=== PATIENT | male | born 1970 | race Caucasian/White ===

== ENCOUNTER → 2018-08-05 | Outpatient (REF) | payer OTHER, MEDICAID ==
[2018-08-05 17:43] LABS: BASO # 0.1 10^3/uL (0.0-0.2); BASO % 1.3 % (0.0-1.0); EOS # 0.2 10^3/uL (0.0-0.50); EOS % 3.2 % (0.0-3.0); HEMATOCRIT 49.9 % (42.0-52.0); HEMOGLOBIN 16.3 g/dl (13.5-17.5); LYMPH # 2.2 10^3/uL (1.5-4.5); LYMPH % 29.2 % (24.0-44.0); MEAN CORPUSCULAR HEMOGLOBIN 27.6 pg (27.0-33.0); MEAN CORPUSCULAR HGB CONC 32.7 g/dl (32.0-36.5); MEAN CORPUSCULAR VOLUME 84.6 fl (80.0-96.0); MONO # 0.5 10^3/uL (0.0-0.8); MONO % 6.8 % (0.0-5.0); NEUTROPHILS # 4.5 10^3/uL (1.8-7.7); NEUTROPHILS % 59.1 % (36.0-66.0); PLATELET COUNT, AUTOMATED 293 10^3/uL (150-450); WHITE BLOOD COUNT 7.6 10^3/uL (4.0-10.0)
[2018-08-05 17:51] LABS: AMORPHOUS SEDIMENT LARGE (NEGATIVE); APPEARANCE, URINE TURBID (CLEAR); BACTERIA, URINE AUTO NEGATIVE (NEGATIVE); BILIRUBIN, URINE AUTO NEGATIVE (NEGATIVE); BLOOD, URINE BLOOD NEGATIVE (NEGATIVE); COLOR, URINE AMBER (YELLOW); GLUCOSE, URINE (UA) AUTO NEGATIVE (NEGATIVE); KETONE, URINE AUTO NEGATIVE (NEGATIVE); LEUKOCYTE ESTERASE, URINE AUTO NEGATIVE (NEGATIVE); MUCUS, URINE SMALL (NEGATIVE); NITRITE, URINE AUTO NEGATIVE (NEGATIVE); PROTEIN, URINE AUTO NEGATIVE (NEGATIVE); RBC, URINE AUTO 0 /HPF (0-3); SPECIFIC GRAVITY URINE AUTO 1.025 (1.002-1.035); SQUAMOUS EPITHELIAL CELL UR AU 0 /HPF (0-6); UROBILINOGEN, URINE AUTO 0.2 mg/dL (0.0-2.0); WBC, URINE AUTO 0 /HPF (0-3)
[2018-08-05 18:04] LABS: ALBUMIN 3.8 GM/DL (3.2-5.2); ALT/SGPT 76 U/L (12-78); BILIRUBIN,TOTAL 0.2 MG/DL (0.2-1.0); BLOOD UREA NITROGEN 16 MG/DL (7-18); CALCIUM LEVEL 8.9 MG/DL (8.5-10.1); CARBON DIOXIDE LEVEL 25 MEQ/L (21-32); CHLORIDE LEVEL 106 MEQ/L (98-107); CHOLESTEROL LEVEL 295 MG/DL (<200); CHOLESTEROL RISK RATIO 8.194 (<5); CREATININE FOR GFR 1.03 MG/DL (0.70-1.30); GLOMERULAR FILTRATION RATE > 60.0 (>60); GLUCOSE, FASTING 89 MG/DL (70-100); HDL CHOLESTEROL 36 MG/DL (>40); LDL CHOLESTEROL 221 MG/DL (<100); NON-HDL-C 259 MG/DL; POTASSIUM SERUM 4.5 MEQ/L (3.5-5.1); SODIUM LEVEL 140 MEQ/L (136-145); TOTAL PROTEIN 7.3 GM/DL (6.4-8.2); TRIGLYCERIDES LEVEL 190 MG/DL (<150)
[2018-08-05 18:06] LABS: TOTAL 25(OH) VITAMIN D 26.7 NG/ML (30.0-100.0)
[2018-08-05 18:26] LABS: HEMOGLOBIN A1c 6.4 %
[2018-08-10 00:06] LABS: Lyme Disease IgG Ab 18 kDa Ban Absent (.); Lyme Disease IgG Ab 23 kDa Ban Absent (.); Lyme Disease IgG Ab 28 kDa Ban Absent (.); Lyme Disease IgG Ab 30 kDa Ban Absent (.); Lyme Disease IgG Ab 39 kDa Ban Absent (.); Lyme Disease IgG Ab 41 kDa Ban Absent (.); Lyme Disease IgG Ab 45 kDa Ban Absent (.); Lyme Disease IgG Ab 58 kDa Ban Absent (.); Lyme Disease IgG Ab 66 kDa Ban Absent (.); Lyme Disease IgG Ab 93 kDa Ban Absent (.); Lyme Disease IgG West Blot Int Negative (.); Lyme Disease IgG/IgM Antibodie <0.91 ISR (0.00-0.90); Lyme Disease IgM Ab 23 kDa Ban Absent (.); Lyme Disease IgM Ab 39 kDa Ban Present (.); Lyme Disease IgM Ab 41 kDa Ban Absent (.); Lyme Disease IgM Ab Quantitati 1.23 index (0.00-0.79); Lyme Disease IgM West Blot Int Negative (.)
== END ==
LOC: M LAB REF 16:47
PROVIDERS: ATTEND Family Medicine
DX: Z00.01 Encounter for general adult medical examination with abnormal findings (principal); M25.50 Pain in unspecified joint

== ENCOUNTER 2018-10-21 06:48 | Day surgery (SDC) | payer OTHER ==
[~2018-10-21] VITALS: Ht 170.2 cm; Wt 87.5 kg
[~2018-10-21 06:48] MED LIST: WELLTAB38 PO
[2018-10-21] MEDS ORDERED: NS 1,000 ML IV SCH (07:00)
[2018-10-21] MEDS ORDERED: PROPOFOL 200 MG/20 ML VIAL As Ordered ONE ×2 (07:21→07:46)
[2018-10-21] MEDS ORDERED: LIDOCAINE 2% INJ 100 MG/5 ML SDV (FOR ANES.) As Ordered ONE (07:21)
--- NOTE | 2018-10-21 07:59 | ROOR ---
Patient Name: Blaine Meadows Procedure Date: 10/21/2018 7:34 AM Date of : 1970 Age: 48 Room: [facility] Gender: Male Note Status: Finalized Procedure: Colonoscopy Indications: Screening in patient at increased risk: Family history of 1st-degree relative with colorectal cancer Providers: Alec HURST MD Referring MD: Alec DEL REAL MD Requesting Provider: Medicines: Monitored Anesthesia Care Complications: No immediate complications. Procedure: Pre-Anesthesia Assessment: - The heart rate, respiratory rate, oxygen saturations, blood pressure, adequacy of pulmonary ventilation, and response to care were monitored throughout the procedure. The Colonoscope was introduced through the anus and advanced to the cecum, identified by appendiceal orifice and ileocecal valve. The colonoscopy was performed without difficulty. The patient tolerated the procedure well. The quality of the bowel preparation was good. Findings: The perianal and digital rectal examinations were normal. Five sessile polyps were found in the sigmoid colon. The polyps were diminutive in size. These polyps were removed with a jumbo cold forceps. Resection and retrieval were complete. The exam was otherwise without abnormality on direct and retroflexion views. (Exam: Complete, Prep: Good or Excellent.) Impression: - (Exam: Complete, Prep: Good or Excellent.) - Five diminutive polyps in the sigmoid colon, removed with a jumbo cold forceps. Resected and retrieved. - Small internal hemorrhoids - The examination was otherwise normal on direct and retroflexion views. Recommendation: - Telephone endoscopist for pathology results in 2 weeks. - If the pathology report reveals adenomatous tissue, then repeat the colonoscopy for surveillance in 3 years. - If the pathology report reveals no adenomatous tissue, then repeat the colonoscopy for screening purposes in 5 years. Alec Hurst MD Alec HURST MD 10/21/2018 7:59:12 AM Electronically signed by Alec HURST MD Number of Addenda: 0 Note Initiated On: 10/21/2018 7:34 AM Estimated Blood Loss: Estimated blood loss: none.
[2018-10-21 08:29] VITALS: BP 130/62
== END 2018-10-21 08:29 | disposition home or self-care (01) ==
LOC: M OPP 06:48
PROVIDERS: ATTEND Internal Medicine Gastroenterology
DX: K63.5 Polyp of colon (principal); Z12.11 Encounter for screening for malignant neoplasm of colon; Z80.0 Family history of malignant neoplasm of digestive organs

== ENCOUNTER 2020-04-10 08:20 | Emergency (ER) | payer BC, OTHER, SELFPAY ==
[~2020-04-10] VITALS: Ht 170.2 cm; Wt 91.9 kg
[2020-04-10] MEDS: NITROGLYCERIN 0.4 MG SUBL TABLET SL PRN ×2 (09:03→09:12)
[2020-04-10 09:12] VITALS: BP 151/79
[2020-04-10 09:19] LABS: BASO # 0.1 10^3/uL (0.0-0.2); EOS # 0.2 10^3/uL (0.0-0.5); EOS % 2.8 % (0.0-3.0); HEMATOCRIT 47.5 % (42.0-52.0); HEMOGLOBIN 15.2 g/dl (13.5-17.5); LYMPH # 1.6 10^3/uL (1.5-5.0); LYMPH % 25.8 % (24.0-44.0); MEAN CORPUSCULAR HEMOGLOBIN 26.9 pg (27.0-33.0); MEAN CORPUSCULAR VOLUME 83.9 fl (80.0-96.0); MONO # 0.4 10^3/uL (0.0-0.8); MONO % 6.6 % (0.0-5.0); NEUTROPHILS # 3.9 10^3/uL (1.5-8.5); NEUTROPHILS % 62.8 % (36.0-66.0); PLATELET COUNT, AUTOMATED 317 10^3/uL (150-450); RED BLOOD COUNT 5.66 10^6/uL (4.30-6.10); WHITE BLOOD COUNT 6.2 10^3/uL (4.0-10.0)
[2020-04-10 09:20] LABS: INR 0.94; PROTHROMBIN TIME 12.8 SECONDS (12.5-14.3)
[2020-04-10 09:21] LABS: PARTIAL THROMBOPLASTIN TIME 31.2 SECONDS (24.2-38.5)
[2020-04-10 09:29] LABS: ALBUMIN 3.7 GM/DL (3.2-5.2); ALT/SGPT 52 U/L (12-78); BILIRUBIN,DIRECT 0.1 MG/DL (0.0-0.2); BILIRUBIN,TOTAL 0.5 MG/DL (0.2-1.0); BLOOD UREA NITROGEN 18 MG/DL (7-18); CALCIUM LEVEL 9.3 MG/DL (8.5-10.1); CARBON DIOXIDE LEVEL 27 MEQ/L (21-32); CHLORIDE LEVEL 108 MEQ/L (98-107); CREATININE FOR GFR 1.05 MG/DL (0.70-1.30); GLOMERULAR FILTRATION RATE > 60.0 (>56); GLUCOSE, FASTING 97 MG/DL (70-100); LIPASE 110 U/L (73-393); POTASSIUM SERUM 3.9 MEQ/L (3.5-5.1); SODIUM LEVEL 140 MEQ/L (136-145); TOTAL PROTEIN 7.1 GM/DL (6.4-8.2)
--- NOTE | 2020-04-10 09:37 | REP ---
INDICATION: CHEST PAIN. COMPARISON: None. TECHNIQUE: SINGLE PORTABLE AP VIEW OF THE CHEST WAS PERFORMED. FINDINGS: THERE IS NO ACUTE INFILTRATE OR PULMONARY EDEMA. LUNGS ARE CLEAR. HEART IS NOT SIGNIFICANTLY ENLARGED. MEDIASTINAL SILHOUETTE IS UNREMARKABLE. THE VISUALIZED OSSEOUS STRUCTURES ARE INTACT. IMPRESSION: NO ACUTE PULMONARY DISEASE. <Electronically signed by Edgard Shaw > 04/10/20 0929
[2020-04-10] MEDS ORDERED: ISOVUE-370 76% 100ML VIAL As Ordered ONE (10:10)
[2020-04-10] MEDS ORDERED: GI COCKTAIL 50ML BTL(HYOSCYAMINE/MAALOX/LIDOCAINE VISCOUS)(1:3:1) PO ONE (10:30)
--- NOTE | 2020-04-10 11:11 | REP ---
INDICATION: r/o PE. COMPARISON: None. TECHNIQUE: CT angiogram chest performed following the intravenous administration of 100 cc of Isovue 370. Sagittal and coronal reconstruction images are performed. FINDINGS: Lungs: The calcified granuloma seen in the right upper lobe posteriorly. There is a 4 mm nodule in the left lower lobe on image number 46 this is of doubtful significance. No infiltrate is seen in either lung. Mediastinum: No adenopathy. Pulmonary arteries: No evidence of pulmonary embolism. Miranda: No adenopathy. Axilla: No adenopathy. Pleura: No effusion. Heart: Not enlarged. Thoracic aorta: No aneurysm or dissection. Upper abdominal structures: There is a small hiatal hernia. Visualized osseous structures: Unremarkable. IMPRESSION: No CT evidence of pulmonary embolism.No infiltrate seen. 4 mm nodule left lower lobe of doubtful significance. Recommend follow-up CT in 1 year only if the patient is at high risk for cancer. <Electronically signed by Edgard Shaw > 04/10/20 1109
[2020-04-10] MEDS ORDERED: PANTOPRAZOLE 40MG VIAL (C9113 PER 1) IV ONE (13:45)
[2020-04-10 14:45] VITALS: BP 127/74
--- NOTE | 2020-04-11 07:57 | ECGEPIP ---
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
--- NOTE | 2020-04-11 07:59 | ECGEPIP ---
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
--- NOTE | 2020-04-11 08:03 | ECGEPIP ---
[facility] - ED Test Date: 2020-04-10 Pat Name: GE DAVIDSON Department: Room: - Gender: Male Clinical Account Liaison: damari : 1970 Requested By: Parmjit Ventura Order Number: [id number] Reading MD: Jeanine Cali Measurements Intervals [place] Rate: 50 P: 22 WV: 153 QRS: -5 QRSD: 96 T: 3 QT: 392 QTc: 359 Interpretive Statements SINUS BRADYCARDIA NONSPECIFIC T-WAVE ABNORMALITY PROLONGED QTC SHORTER 04/10/20 Electronically Signed on 04-11-2020 8:03:04 EDT by Jeanine Cali
--- NOTE | 2020-04-12 16:12 | ED PDOC ---
Post-Departure Follow-Up dr gannon faxed formal report of cta chest for fu Singh Keane MD Apr 12, 2020 16:12
== END 2020-04-10 15:00 | disposition home or self-care (01) ==
LOC: M ED 08:20 → EDBD 08:20 → M ED 15:00
DX: R07.89 Other chest pain (principal); R06.02 Shortness of breath; E78.5 Hyperlipidemia, unspecified; Z87.891 Personal history of nicotine dependence
CPT/HCPCS: 71045; 71275; 80048; 80076; 83690; 84484; 85025; 85610; 85730; 93005; 93041; 94760; 96374; 99285; C9113; Q9967

== ENCOUNTER → 2020-07-03 | Outpatient (CLI) | payer OTHER ==
--- NOTE | 2020-07-08 14:25 | SLEEPHOME ---
DATE: 07/03/2020 ORDERED BY: Alec Domingo MD Diagnostic home sleep testing was performed due to concern for the obstructive sleep apnea syndrome. For testing, a nocturnal T3 respiratory monitoring device was used. Continuous record was made of pulse, oxygen saturation, air flow, chest and abdominal strain, and body position. Nine hours and 59 minutes of data were reviewed. There were 6 hours and 8 minutes marked as time in bed. During the interval marked time in bed, there were 92 respiratory events identified of 10 seconds in duration or greater for a respiratory event index of 15. The events were primarily obstructive and 18 mixed and central apneas were noted. Baseline pulse rate was 53 beats per minute. Pulse rate ranged 37 to 117. Baseline saturation was 91%. Saturations were seen to 82%. Further desaturation was noted to be likely artifactual. Testing was performed in both the supine and nonsupine positions. IMPRESSION: Abnormal home sleep testing with repetitive respiratory events and oxygen desaturations to 82% with a respiratory event index of 15 is consistent with the obstructive sleep apnea syndrome. RECOMMENDATION: The patient should be encouraged to undergo a formal sleep evaluation. %%CCLIST%%
== END ==
LOC: M SLEEP HO 09:35
PROVIDERS: ATTEND Internal Medicine Cardiovascular Disease
DX: R06.83 Snoring (principal)